=== PATIENT | female | born 1935 ===

== ENCOUNTER 2016-08-12 09:21 | Inpatient (IN) | payer MEDICARE, MEDICAID ==
[2016-08-12] VITALS (14 sets, daily range): BP systolic 75–138; BP diastolic 26–54; PULSE 68–93; RESP 15–23; O2SAT 91–100
[~2016-08-12] VITALS: Ht 160 cm; Wt 121.7 kg
[~2016-08-12 09:21] MED LIST: ALLO300T2 PO; AMLO10TA3 PO; CARV25TA2 PO; CEPH250C PO; CYCL5TAB PO; FENO160T6 PO; FOLI1TAB18 PO; FURO-129 PO; GABA-502 PO; GABA100C PO; GABA300C PO; INSU100C8 SUBCUTA079; INSU100V7 SUBQ; LORA10CA PO; METH5TAB PO; METH5TAB3 PO; METO-301 PO; ONDA4TAB9 PO; OXYC-466 PO; OXYC10TA8 PO; PRAM1TAB3 PO; SIMV20TA4 PO; VENL37.57 PO
[2016-08-12] MEDS ORDERED: 0.9% Sodium Chloride 1,000 ML IV ONE ×5 (09:41→14:15)
[2016-08-12 10:05] LABS: BASOPHILS % (AUTO) 0.1 % (0-3); EOSINOPHILS % (AUTO) 2.6 % (0-5); MONOCYTES % (AUTO) 6.9 % (4-12); Mean Corpuscular Hemoglobin 25.3 pg (27.0-35.0); NEUTROPHILS % (AUTO) 83.9 % (40-74); Platelet Count 170 bil/L (150-400)
--- NOTE | 2016-08-12 10:21 | DRSVH ---
PROCEDURE: CT BRAIN WITHOUT CONTRAST ([id number]) INDICATIONS: weakness, ams TECHNIQUE: Noncontrast 4.5 mm thick angled axial sections acquired from the foramen magnum to the vertex, with c oronal reformats. COMPARISON: [facility], CT, BRAIN W/O CONTRAST, 07/25/2014, 17:05. [facility], CT, BRAIN W/O CONTRAST, 12/31/2013, 13:07. [facility], CT, BRAIN W/O CONTRAST, 12/01/19 14, 0:56. FINDINGS: Image quality: Excellent. CSF spaces: Basal cisterns are patent. No extra-axial fluid collections. The ventricles are symmet hannah in size and shape. Brain: No intracranial bleeds or masses. 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 There is cerebral volume loss for age, with resultant ventricular and sulcal prominence. There a re periventricular and deep white matter chronic small vessel ischemic changes. There is intracrania l internal carotid artery atherosclerosis. Skull and face: Calvarium and visualized facial bones appear intact, without suspicious lesions. Sinuses: There is near no severe right maxillary sinus opacification. Visualized sinuses and mastoid s are otherwise clear. IMPRESSION: 1. No acute intracranial abnormality. 2. Right maxillary sinus disease. Dictated by: Marisa Monzon M.D. on 08/12/2016 at 10:18 Approved by: Marisa Monzon M.D. on 08/12/2016 at 10:19
--- NOTE | 2016-08-12 10:24 | ED.REPORT ---
HPI-General Illness Date of Service Aug 12, 2016 ED Provider: Marcos Quinones MD 81 year old female with a history of CHF, CAD, diabetes, and HTN presents to the ER via EMS due to vomiting and diarrhea onset last night. She reports blood in her vomit and stool. Associated symptoms include mild transient chest pain onset this morning, SOB, generalized weakness, and abdominal pain. Recently she was exposed to an ill friend who drove her to the store yesterday. Per EMS report, patient was hypotensive upon medics' arrival at the patient's residence. Currently she takes Lisinopril, Carvedilol, and 20mg Lasix daily. She has a history of pacemaker placement though she is unclear history as to why she has a pacemaker. Nursing Notes Stated Complaint: GENERALIZED WEAKNESS Chief Complaint: General Complaint Nursing Notes Reviewed: Yes Allergies: Coded Allergies: Salicylates (Verified Allergy, Severe, 04/19/16) metformin (Verified Allergy, Unknown, 04/19/16) NSAIDS (Non-Steroidal Anti-Inflamma (Verified Adverse Reaction, Intermediate, GI upset, 04/19/16) codeine (Verified Adverse Reaction, Mild, GI UPSET, 04/19/16) Scheduled Allopurinol (Allopurinol) 300 Mg Tablet 300 MG PO DAILY Amlodipine (Amlodipine) 10 Mg Tablet 10 MG PO DAILY Carvedilol (Carvedilol) 25 Mg Tablet 25 MG PO BID Cephalexin (Cephalexin) 250 Mg Capsule 250 MG PO TID Fenofibrate (Lofibra) 160 Mg Tablet 160 MG PO DAILY Folic Acid (Folic Acid) 1 Mg Tablet 1 MG PO DAILY Furosemide (Lasix) 20 Mg Tablet 20 MG PO DAILY Gabapentin (Gabapentin) 300 Mg Capsule 600 MG PO QAM Gabapentin (Gabapentin) 300 Mg Capsule 600 MG PO HS Gabapentin (Neurontin) 300 Mg Capsule 600 MG PO BID Gabapentin (Neurontin) 100 Mg Capsule 200 MG PO noon Insulin Aspart (NovoLOG U100 Insulin Vial) 100 U/Ml U 10 UNIT [id number] TIDAC Insulin Glargine (Lantus U100 Insulin Vial) 100 Unit/Ml Vial 40 UNIT SUBQ BID INSULIN PROTOCAL Methadone (Methadone) 5 Mg Tablet 5 MG PO Q 8 HR Methotrexate Sodium (Trexall) 5 Mg Tablet 25 MG PO EVERY THURSDAY Pramipexole Dihydrochloride (Mirapex) 1 Mg Tablet 2 MG PO HS Simvastatin (Simvastatin) 20 Mg Tablet 20 MG PO HS Venlafaxine (Venlafaxine) 37.5 Mg Tablet 37.5 MG PO TID Scheduled PRN Cyclobenzaprine (Cyclobenzaprine) 5 Mg Tablet 5 MG PO HS PRN PRN Spasm Loratadine (Claritin) 10 Mg Capsule 10 MG PO DAILY PRN PRN ALLERGIES Metoclopramide (Reglan) 10 Mg Tablet 10 MG PO HS PRN PRN For Nausea Ondansetron ODT (Zofran ODT) 4 Mg Tablet 4 MG PO Q4H PRN PRN For Nausea oxyCODONE (oxyCODONE) 10 Mg Tablet 10 MG PO QID PRN PRN For Pain oxyCODONE-Acetaminophen 10-325 mg (oxyCODONE-Acetaminophen 10-325 mg) 1 Each Tablet 1 TAB PO Q4H PRN PRN For Pain General Time Seen by MD: 09:40 Chief Complaint Diarrhea, Vomiting Hx Obtained From: Patient, EMS Arrived By: Ambulance Sudden in Onset?: No Onset Occurred: Yesterday Symptom Duration: Since onset Associated with: Reports: Abdominal pain, Chest pain, Nausea, Shortness of breath, Vomiting, Weakness Context Related History: Reports Coronary artery disease, Reports Diabetes mellitus Past Medical History Past Medical History Notes: PCP: Dr. Zay NUNEZ Report: Patient is chronically on opiate pain medications. Two visits to [facility] ED in the last month. Past Medical History 1. Arteriosclerotic coronary artery disease, history of [place] in 1991. Has a normal ejection fraction, no significant valvular heart disease, and a normal EF. 2. Hypertension. 3. Biventricular dual-chamber defibrillator placed August 16, 2012. 4. Prior history of pulmonary embolism many years ago. 5. Sleep apnea and is noncompliant with CPAP. 6. GI bleeding in the past with EGD diagnosis esophagitis, gastritis, gastric polyps, hiatal hernia. 7. Degenerative joint disease, osteoarthritis. 8. Type 2 diabetes, insulin dependent 9. Prior history of small-bowel obstruction. 10. Recurrent urinary tract infections. 11. Status post cholecystectomy, hysterectomy. Reports: Congestive heart failure, Coronary artery disease, Diabetes mellitus, Hyperlipidemia, Hypertension Past Surgical History Reports: Appendectomy, Cholecystectomy, Hysterectomy Reports: Pacemaker insertion Smoking History Never Smoker Social History Alcohol Use: Denies alcohol use Drug Use: Denies drug use Other Social History: Lives with children, Local resident Ambulatory Status Independent Review of Systems Full Review of Systems Constitutional: Reports: Weakness - generalized, Denies: Chills, Fever Respiratory: Reports: Shortness of breath, Denies: Non-productive cough Cardiovascular: Reports: Chest pain GI: Reports: Abdominal pain, Bloody/tarry stool, Diarrhea, Hematemesis, Hematochezia, Nausea, Vomiting, Denies: Constipation Musculoskeletal: Reports: Extremity swelling (Lower, bilateral) Neurologic: Denies: Headache Complete sys rev & neg: except as marked. Physical Exam Vital Signs Vital Signs Date Time Temp Pulse Resp B/P Pulse Ox O2 Delivery O2 Flow Rate FiO2 08/12/16 16:15 68 21 76/26 97 Mechanical Ventilator 08/12/16 15:53 100 08/12/16 15:01 36.2 86 15 98/37 94 Simple Mask 3 08/12/16 14:26 84 23 107/54 95 Simple Mask 4 08/12/16 13:59 78 23 90/38 100 Simple Mask 4 08/12/16 13:39 35.7 08/12/16 13:34 35.8 73 22 80/30 96 Simple Mask 4 08/12/16 12:08 36.4 79 23 84/39 91 Nasal Cannula 2 08/12/16 11:11 85 22 89/42 95 Room Air 08/12/16 10:19 89 21 75/34 96 Room Air 08/12/16 09:40 37.0 89 22 93/34 94 2 Initial VS: Reviewed Head / Eyes: Atraumatic, Normocephalic, PERRL Neck: Supple, Non-tender, Full range of motion Extremities: Vascular intact, Neuro intact, No swelling, No tenderness Skin: Warm, Dry, No cyanosis Neurologic: Alert, Oriented, Nonfocal Psychiatric: Mood/affect normal, Behavior normal, Normal thought content General/Constitutional: Awake, Alert, Well developed Appearance / Presentation: Positive: Obese ENT: Airway patent Mouth: Positive: Mucous membranes dry Respiratory / Chest: Breath sounds NL, No respiratory distress, No rales, No rhonchi, No wheezing Cardiovascular: Heart rate NL, Regular rhythm, Heart sounds NL Thready distal pulses. Trace pitting edema in the bilateral lower extremities. Interpretation & Diagnostics Lab Results Interpretation Result Diagram: 08/12/16 0955 08/12/16 0955 Test 08/12/16 09:55 08/12/16 12:35 08/12/16 15:48 White Blood Count 8.0th/mm3 (3.8-10.1) Red Blood Count 4.00mil/mm3 (3.90-5.20) Hemoglobin 10.1g/dL (12.0-15.6) Hematocrit 33.2% (35.0-46.0) Mean Corpuscular Volume 83.0fL (81-100) Mean Corpuscular Hemoglobin 25.3pg (27.0-35.0) Mean Corpuscular Hemoglobin Concent 30.4% (32.0-37.0) Red Cell Distribution Width 15.6% (12.3-15.4) Platelet Count 170bil/L (150-400) Neutrophils (%) (Auto) 83.9% (40-74) Lymphocytes (%) (Auto) 6.0% (14-46) Monocytes (%) (Auto) 6.9% (4-12) Eosinophils (%) (Auto) 2.6% (0-5) Basophils (%) (Auto) 0.1% (0-3) Sodium Level 136mEq/L (134-144) Potassium Level 4.9mEq/L (3.5-5.2) Chloride Level 99mEq/L (97-108) Carbon Dioxide Level 20mmol/L (18-29) Blood Urea Nitrogen 48mg/dL (8-27) Creatinine 2.45mg/dL (0.57-1.00) Estimat Glomerular Filtration Rate 27mL/min (>59) Glucose Level 212mg/dL (60-99) Calcium Level 8.5mg/dL (8.5-10.1) Total Bilirubin 0.7mg/dL (0.0-1.2) Aspartate Amino Transf (AST/SGOT) 82U/L (0-50) Alanine Aminotransferase (ALT/SGPT) 48U/L (0-32) Alkaline Phosphatase 134U/L (25-165) Troponin T < 0.010ug/L (0.0-0.011) Pro-B-Type Natriuretic Peptide 228.4pg/mL (0-738) Total Protein 6.6g/dL (6.4-8.4) Albumin 3.5g/dL (3.4-5.0) Urine Color Yellow (YELLOW) Urine Appearance Hazy (CLEAR,HAZY) Urine pH 5.0 (5.0-8.0) Urine Specific [place] 1.025 (1.003-1.035) Urine Protein Negativemg/dL (NEG,TRACE) Urine Glucose (UA) Negativemg/dL (NEGATIVE) Urine Ketones Tracemg/dL (NEGATIVE) Urine Occult Blood Negative (NEGATIVE) Urine Nitrite Negative (NEGATIVE) Urine Bilirubin Small (NEGATIVE) Urine Ictotest Negative (Negative) Urine Urobilinogen Normalmg/dL (NORMAL) Urine Leukocyte Esterase Trace (NEGATIVE) Urine RBC 0-2/hpf (0-2) Urine WBC 0-5/hpf (0-5) Urine Epithelial Cells Occasional/hpf (NONE-MOD) Urine Crystals Amorphous urates (NONE Urine Bacteria Few/hpf (NONE-FEW) Urine Hyaline Casts None/lpf (NONE) Urine Granular Casts None seen (NONE SEEN) Urine Waxy Casts None seen (NONE SEEN) Urine Red Blood Cell Casts None seen (NONE SEEN) Urine White Blood Cell Casts None seen (NONE SEEN) Urine Mucus None seen (None Seen) Urine Trichomonas None seen (NONE SEEN) Urine Yeast None (NONE SEEN) Urinalysis Comment None Urine Culture Reflexed Indicated Urine Opiates Screen Negative Urine Methadone Screen Negative Urine Barbiturates Screen Negative Urine Amphetamines Screen Positive Urine Benzodiazepines Screen Negative Urine Cocaine Metabolite Screen Negative Urine Cannabinoids Screen Negative Lactic Acid Level 3.0mmol/L (0.4-2.0) ECG Interpretation ECG Interpretation: ventricular paced rhythm, rate 89 when compared to ECG 04/19/16, no acute changes present. Time: 11:11 Interpreted by: ED physician ABG Interpretation ABG Interpretation: pH/ 7.138 pCO2/ 54 pO2/ 73 cHCO3/ 17.5 cBase/ -10.7 Exam Performed by: Allied health pract Exam Interpreted by: ED physician X-Ray Chest Interpretation Chest Xray Interpretation: IMPRESSION: No acute cardiopulmonary abnormality Dictated by: Daniel Nichole M.D. on 08/12/2016 at 10:44 Approved by: Daniel Nichole M.D. on 08/12/2016 at 10:45 View: Portable, 1 view Interpretation / Wet Read by: Interpret - Radiologist CT Head Interpretation IMPRESSION: 1. No acute intracranial abnormality. 2. Right maxillary sinus disease. Dictated by: Marisa Monzon M.D. on 08/12/2016 at 10:18 Approved by: Marisa Monzon M.D. on 08/12/2016 at 10:19 Study: Head CT no contrast Interpretation / Wet Read by: Interpret - Radiologist Procedures Central Line Placement Time: 13:56 Procedure Performed by: ED physician Consent / Setup / Site Prep: Informed consent provided, Consent from patient , Time-out performed, Needle aspirate performed, Oxygen administered, Pulse oximeter applied, trauma doctor applied, Hand hygiene observed, Standard surgical scrub, Max barrier precaution, Sterile drapes applied, Position supine Skin Preparation Agent: [place] Local Anesthesia: Lidocaine 1% Side / Location / Ultrasound: Internal jugular right, Ultrasound assisted Catheter / Lumen / Technique: Triple lumen, Seldinger technique, Good blood return, Secured w catheter device Central Line Tip Location: Cath tip good position in the SVC Post-Procedure / Complications: CXR neg for pneumothorax, Condition improved , Tolerated procedure well, Patient stable, Not stable post-procedure Intubation Time: 15:32 Procedure Performed by: ED physician Consent / Setup / Site Prep: Informed consent provided, Consent from patient , Time-out performed, Oxygen administered, Pulse oximeter applied, trauma doctor applied, Hand hygiene observed, Stand sterile technique, Removed dentures Patient Position: Neutral position Blade / ET Tube / Route: [place] scope, Route: oral Procedural Sedation/Analgesia: Sedation: Etomidate (33mg) Neuromuscular Agent: Succinylcholine (167mg) ET Confirmation: Direct visualization, BS equal, End tidal CO2 device, CXR, Rising O2 sat Secured / Marked: ET tube device, Tube marked at ___ cm (22), Tube marked at teeth (gums) Complications: None Post-Procedure: Condition improved, Tolerated procedure well, Patient stable Re-Eval/Medical Decision Med Decision/Clinical Course 81 year old female with a history of CHF, CAD, diabetes, and HTN presents to the ER via EMS due to vomiting and diarrhea onset last night. She reports blood in her vomit and stool. Associated symptoms include mild transient chest pain onset this morning, SOB, generalized weakness, and abdominal pain. Recently she was exposed to an ill friend who drove her to the store yesterday. Per EMS report, patient was hypotensive upon medics' arrival at the patient's residence. Currently she takes Lisinopril, Carvedilol, and 20mg Lasix daily. She has a history of pacemaker placement though she is unclear history as to why she has a pacemaker. Initially hypotensive 60's/30's. Repeat BP 75/34 with IV fluid bolus. Vital signs otherwise stable. Laboratory studies notable as below: No leukocytosis Hct 34.2 BUN 48 Creatinine 2.45 Glucose 212 Lactic acid 2.8 Mildly elevated transaminases Neg trop BNP within normal limits UDS positive for amphetamines, otherwise negative UA unconvincing of UTI IV access was obtained and we aggressively administered IV fluids. The patient' s blood pressure improved with a map of 65. The patient did mention possible underlying congestive heart failure and is on Lasix though she appeared profoundly dehydrated. Chest x-ray demonstrated no pulmonary edema and BNP was not elevated. The patient did not develop any pulmonary edema or respiratory deterioration with aggressive IV fluid management. However she remained hypotensive with a map below 65 despite receiving 30 mL/kg of IV fluids. Therefore a right IJ CVC was placed as documented above and we initiated a norepinephrine infusion with a goal MAP of 65. This resulted in good blood pressure management. Given the patient's ongoing profound hypertension and severe illness despite extensive workup without any obvious infectious source other than diarrheal illness I opted to start broad-spectrum antibiotics with IV vancomycin and Zosyn. Patient became increasingly somnolent with respirations that were agonal in appearance. She maintained oxygen saturation in the 90s on room air though ABG demonstrated that she was significantly acidotic with primary metabolic acidosis as well as a respiratory acidosis. Given that the patient was not mounting appropriate respiratory compensation and was becoming increasingly somnolent therefore I opted to proceed with rapid sequence intubation as documented above. The patient did become briefly hypoxic with an oxygen saturation in the 50s spell this rapidly improved to 100%. The procedure was achieved with relative ease. Of note, the patient developed several runs of ventricular tachycardia though maintained pulses. Given that these were fairly brief episodes I did not immediately opt to start the patient on amiodarone. The patient remained critically ill and was discussed with the ICU team. The patient was transferred to the ICU for further management and was stabilized at time of transfer. Source of Hx: Old records Time of Eval: 10:16 Re-Evaluation/Progress Note: Discussed need to admit. Patient is amenable to the plan. Time of Eval: 10:51 Re-Evaluation/Progress Note: Patient is resting peacefully. Abdominal discomfort persists. Time of Eval: 11:07 Re-Evaluation/Progress Note: Rechecked patient's blood pressure, improved to 80's/40's with MAP of 60. Time of Eval: 15:31 Re-Evaluation/Progress Note: Patient is now accompanied by her son who is at bedside. Updated patient and son on the plan of care, and need to intubate. They understand and agree to the plan. Consultation #1: Referral / Consult Name: Gabriel Vasquez MD Consulted With: Hospitalist Call Returned at: 12:00 Manager Transfusion: Agrees with eval, Agrees with plan, Accepts admit Consultation #2: Referral / Consult Name: Gabriel Vasquez MD Consulted With: Hospitalist Call Returned at: 15:15 Counseled Regarding: Diagnosis, Lab results, Need for admission Discharge & Departure Primary Impression: Hypotension Hypotension type: unspecified hypotension type Qualified Code: I95.9 - Hypotension, unspecified Additional Impressions: Abdominal pain Abdominal location: generalized Qualified Code: R10.84 - Generalized abdominal pain Ventricular tachycardia Septic shock Metabolic acidosis Respiratory acidosis Acute respiratory failure Respiratory failure complication: hypercapnia Qualified Code: J96.02 - Acute respiratory failure with hypercapnia Nausea and vomiting Vomiting type: unspecified Vomiting Intractability: unspecified Qualified Code: R11.2 - Nausea with vomiting, unspecified Diarrhea Disposition: ADMITTED TO HOSPITAL Discharge Condition All VS Reviewed: Yes Condition: Stable Referrals: PAUL MARY (PCP) Crit Care Except Billable Proc Time Spent: >225 minutes Services Performed: Patient management by me, Time spent at bedside, Reviewing test results, Reviewing imaging, Discussing patient care, Documentation in record, Time with fam/surrogate Critical Care Notes: Extensive time at the bedside, stabilization, ventilator management, management of vasoactive drips, discussion with consultants, serial rechecks, exclusive of separately billable procedures. Beena Attestation Portions of this note were transcribed by Esteban Hall. I, Dr. Quinones, personally performed the history, physical exam and medical decision-making; I reviewed and confirmed the accuracy of the information in the transcribed note. Signed by: Beena Maharaj, 08/12/2016 and 15:45 copies to: PAUL MARY Beck O MD Jan 31, 2017 10:23 ESTEBAN HALL Aug 12, 2016 10:39
[2016-08-12 10:30] LABS: TROPONIN T < 0.010 ug/L (0.0-0.011)
[2016-08-12] MEDS ORDERED: HYDROmorphone 1 mg/mL Inj IVPUSH ONE (10:30)
[2016-08-12] MEDS ORDERED: Ondansetron 2 mg/mL 2 mL Inj IVPUSH PRN (10:30)
[2016-08-12] MEDS ORDERED: Alum-Mag Hydrox-Simeth 30 mL Suspension PO PRN (10:30)
--- NOTE | 2016-08-12 10:47 | DRSVH ---
PROCEDURE: X-RAY CHEST ONE VIEW, PORTABLE ([id number]) INDICATIONS: weakness TECHNIQUE: One view of the chest was acquired. COMPARISON: 04/12/2016 FINDINGS: Surgical changes and devices: AICD Lungs and pleura: Elevated right hemidiaphragm. No pleural effusions or pneumothorax. Lungs are amy ar. Mediastinum: Mediastinal contours appear normal. Heart size is normal. Bones and chest wall: No suspicious bony lesions. Overlying soft tissues appear unremarkable. IMPRESSION: No acute cardiopulmonary abnormality Dictated by: Daniel Nichole M.D. on 08/12/2016 at 10:44 Approved by: Daniel Nichole M.D. on 08/12/2016 at 10:45
[2016-08-12] MEDS ORDERED: HYDROcodone-APAP 5-325 mg Tablet PO PRN (12:20)
[2016-08-12] MEDS ORDERED: Polyethylene Glycol (PEG) 17 Gm Powder PO PRN (12:20)
[2016-08-12] MEDS ORDERED: oxyCODONE-Acetamin 10-325 mg Tablet PO PRN (12:25)
[2016-08-12] MEDS ORDERED: Non-Formulary Medication (oxyCODONE 10 MG) PO PRN (12:25)
--- NOTE | 2016-08-12 12:33 | PCM.HPMED ---
Subjective Date of Service Aug 12, 2016 Primary Provider: Admitting Physician: Primary Care Physician: Sheila Rabago Attending Physician: Chief Complaint: Nausea, vomiting blood in stool and vomit and mild transient chest pain History of Present Illness: 81 year old female with a history of CHF, CAD, diabetes, and HTN presents to the ER via EMS due to vomiting and diarrhea onset last night. She reports blood in her vomit and stool. Associated symptoms include mild transient chest pain onset this morning, SOB, generalized weakness, and abdominal pain. Recently she was exposed to an ill friend who drove her to the store yesterday. Per EMS report, patient was hypotensive upon medics' arrival at the patient's residence. Review of Systems: Gen.: No fevers chills weight loss weight gain Eyes: no visual disturbances or blurring vision HEENT: No nose/throat drainage, no pain in ears or throat, no hearing loss Lymph: No lymph nodes noted Cardiac: No chest pain, orthopnea, PND, palpitations , pedal edema or dyspnea on exertion Pulmonary: no cough, wheezing or bringing up of sputum GI: No anorexia nausea vomiting blood or black in the stool : no dysuria hematuria urinary frequency or decrease in urine output Musculoskeletal: Joint swelling no joint pain no new muscle aches or back pain Neuro: No syncope, seizures no loss of consciousness no new focal weakness, numbness or tingling Psychiatric: New new anxiety insomnia or depression Endocrine: No new heat or cold intolerances polyuria or polydipsia Hematology: No lymphadenopathy or easy bleeding or bruising noted skin: No new rashes, stasis dermatitis Allergies Coded Allergies: Salicylates (Verified Allergy, Severe, 04/19/16) metformin (Verified Allergy, Unknown, 04/19/16) NSAIDS (Non-Steroidal Anti-Inflamma (Verified Adverse Reaction, Intermediate, GI upset, 04/19/16) codeine (Verified Adverse Reaction, Mild, GI UPSET, 04/19/16) Home Medications Allopurinol (Allopurinol) 300 Mg Tablet 300 MG PO DAILY Amlodipine (Amlodipine) 10 Mg Tablet 10 MG PO DAILY Carvedilol (Carvedilol) 25 Mg Tablet 25 MG PO BID Cephalexin (Cephalexin) 250 Mg Capsule 250 MG PO TID Fenofibrate (Lofibra) 160 Mg Tablet 160 MG PO DAILY Folic Acid (Folic Acid) 1 Mg Tablet 1 MG PO DAILY Furosemide (Lasix) 20 Mg Tablet 20 MG PO DAILY Gabapentin (Gabapentin) 300 Mg Capsule 600 MG PO QAM Gabapentin (Gabapentin) 300 Mg Capsule 600 MG PO HS Gabapentin (Neurontin) 300 Mg Capsule 600 MG PO BID Gabapentin (Neurontin) 100 Mg Capsule 200 MG PO noon Insulin Aspart (NovoLOG U100 Insulin Vial) 100 U/Ml U 10 UNIT [id number] TIDAC Insulin Glargine (Lantus U100 Insulin Vial) 100 Unit/Ml Vial 40 UNIT SUBQ BID INSULIN PROTOCAL Methadone (Methadone) 5 Mg Tablet 5 MG PO Q 8 HR Methotrexate Sodium (Trexall) 5 Mg Tablet 25 MG PO EVERY THURSDAY Pramipexole Dihydrochloride (Mirapex) 1 Mg Tablet 2 MG PO HS Simvastatin (Simvastatin) 20 Mg Tablet 20 MG PO HS Venlafaxine (Venlafaxine) 37.5 Mg Tablet 37.5 MG PO TID Scheduled PRN Cyclobenzaprine (Cyclobenzaprine) 5 Mg Tablet 5 MG PO HS PRN PRN Spasm Loratadine (Claritin) 10 Mg Capsule 10 MG PO DAILY PRN PRN ALLERGIES Metoclopramide (Reglan) 10 Mg Tablet 10 MG PO HS PRN PRN For Nausea Ondansetron ODT (Zofran ODT) 4 Mg Tablet 4 MG PO Q4H PRN PRN For Nausea oxyCODONE (oxyCODONE) 10 Mg Tablet 10 MG PO QID PRN PRN For Pain oxyCODONE-Acetaminophen 10-325 mg (oxyCODONE-Acetaminophen 10-325 mg) 1 Each Tablet 1 TAB PO Q4H PRN PRN For Pain PMH 1. Arteriosclerotic coronary artery disease, history of VT in 1991. Has a normal ejection fraction, no significant valvular heart disease, and a normal EF. 2. Hypertension. 3. Biventricular dual-chamber defibrillator placed August 16, 2012. 4. Prior history of pulmonary embolism many years ago. 5. Sleep apnea and is noncompliant with CPAP. 6. GI bleeding in the past with EGD diagnosis esophagitis, gastritis, gastric polyps, hiatal hernia. 7. Degenerative joint disease, osteoarthritis. 8. Type 2 diabetes, insulin dependent 9. Prior history of small-bowel obstruction. 10. Recurrent urinary tract infections. 11. Status post cholecystectomy, hysterectomy. Reports: Congestive heart failure, Coronary artery disease, Diabetes mellitus, Hyperlipidemia, Hypertension Surgical History Past Surgical History Reports: Appendectomy, Cholecystectomy, Hysterectomy Reports: Pacemaker insertion Family History Brother had an VT in his 30s Social History Occupation: retired Hx Alcohol Use: No Hx Substance Use: No Hx Tobacco Use: No Smoking Status: Never Smoker Living Arrangement: with Family Additional Information Patient local resident, lives with children Social History Hx Alcohol Use: No Hx Substance Use: No Hx Tobacco Use: No Smoking Status: Never Smoker Exam Vital Signs Vital Sign - Last Date Time Temp Pulse Resp B/P Pulse Ox O2 Delivery O2 Flow Rate FiO2 08/12/16 12:08 36.4 79 23 84/39 91 Nasal Cannula 2 Exam Gen.-Morbidly obese female intubated/sedated Eyes-closed, normal lids no drainage Mouth-ET tube ENT- ears normal, nose normal Neck- trach midline unable to assess JVD secondary to body habitus CVS- RRR no murmur or gallop, edema consistent with body habitus and the extremities Lungs- CTA ventilator sounds no wheezes or rhonchi GI-decreased bowel sounds/NT soft no guarding Musc-flaccid no obvious deformity Neuro- cranial nerves II through XII intact to gross examination, nonfocal Skin- warm and dry, no rashes/lesions/wounds noted Psych-sedated Lab and Diagnostics Labs AST 82, ALT 48, alkaline phosphatase 134, proBNP 228, troponin 0.010 urine clear 08/12 DateTimeAnalyzed 17:54:00 -_ pH ____7.224 - 7.350 7.450 pCO2 ___40.4__ -mmHg 35.0 45.0 pO2 ___68.1__ -mmHg 69.0 116 HCO3- ___16.1__ -mmol/L 22.0 26.0 ABE __-10.4__ -mmol/L -2.0 2.0 tHb ____8.5__ -g/dL O2Hb ___88.7__ -% COHb ____1.4__ -% MetHb ____1.6__ -% sO2 ___91.4__ -% FIO2 ___50.0__ -% PEEP ____5.0__ -cmH2O Set_RR ___20.0__ -b/min Vt __400.0__ -L Drawn By MT - Result Diagram: 08/12/16 0955 08/12/16 0955 X-Rays, CTs and MRIs CT head personally/concurrently reviewed by Christina 08/12 1. No acute intracranial abnormality. 2. Right maxillary sinus disease. CXR no acute cardiopulmonary disease, pacemaker noted personally/concurrently reviewed by Christina 08/12 12-lead ECG 08/12 personally/concurrently reviewed by Christina 08/12 . Ventricular-paced rhythm rate 89 . When compared with ECG of 19-Apr-2016 18:13:42, . No significant change Cardiac Echo Impressions Echo 07/26/14 The left ventricle is borderline dilated. Left ventricular systolic function is normal. The ejection fraction is estimated to be 60-65%. There are no obvious focal wall motion abnormalities noted but poor endocardial definition reduces the sensitivity for the detection of such. The right ventricle is normal in size and function. There is a pacemaker lead in the right ventricle. The right ventricular systolic pressure is estimated at 30 mmHg assuming a right atrial pressure of 3 mm Hg. RVSP has decreased since prior study. The left atrium is moderately dilated. Right atrial size is normal. There is no significant valvular heart disease. The aortic root is normal size. No other significant changes since 09/08/2013. Assessment & Plan 81-year-old female acutely ill and admitted 08/12 hypotensive and in acute renal failure complaining of emesis and abdominal pain and then deteriorating in the emergency room becoming hypotensive and did not respond to 4 L of fluid and respiratory failure and was intubated. She comes to the floor on vasopressin and norepinephrine getting IV fluids and on a ventilator. Sepsis?- Source unclear at this point in time but most likely abdominal. Covering abdominal infection with Zosyn, lung zosyn/doxy (less likely). CT chest/abdomen/pelvis ordered cannot do contrast because of acute kidney injury. Trend lactate Acute respiratory failure- patient intubated etiology not entirely clear awaiting imaging thought at this point in time his volume overload/diastolic CHF as patient got 4 L and has sleep apnea and obesity hypoventilation syndrome Abdominal pain/nausea/vomiting/hematemesis/hematochezia-episode concerning for catastrophic abdominal event patient does have this history of bowel obstruction, we are having a problem getting the CT on her because she is not stable so I am getting flat plates. We will also trend H&H every 6 hours and transfuse as needed. Metabolic acidosis- repeat lactate pending, trend, antibiotics and fluid resuscitation Diastolic CHF?- Checking BNP at this point in time after volume resuscitation the contributing factor to respiratory failure Hypotension- likely secondary to sepsis, checking random cortisol level, volume resuscitating and utilizing pressors at this time. SHEBA-baseline cr 0.8 810/9/16, 2.45 1/31, follow and volume resuscitated at this time. IDDM- Lantus as ordered on parameters, prandial insulin, sliding scale insulin will follow an HG A1c is pending Transaminitis-acute, new since April, AST/ALT 82/48 08/12 HX HTN/LIPID/cad- home meds on parameters track Trop/EKG patient at risk for cardiac event under stress Hx GERD/GIBleed- follow H&H and transfuse as needed ROBBIE- non compliant likely contributed to respiratory failure Prophylaxis- DVT patient should have SCDs and heparin, GI pantoprazole Disposition-from home full code Not entirely clear what happening with this patient she initially presented as a viral gastroenteritis it would appear and then deteriorated in the emergency room. She has a history of bowel obstructions and risk factors for vascular events greater than 90 minutes spent ICU level care for life-threatening event that may sedate this patient's demise. Gabriel Vasquez MD Aug 12, 2016 12:33
[2016-08-12 13:04] LABS: APPEARANCE,URINE HAZY (CLEAR,HAZY); COLOR,URINE YELLOW (YELLOW); OCCULT BLOOD,URINE NEGATIVE (NEGATIVE); UROBILINOGEN,URINE NORMAL (NORMAL)
[2016-08-12 13:29] LABS: ICTOTEST,URINE NEGATIVE (Negative)
[2016-08-12] MEDS ORDERED: Glucose 40% Oral Gel 15 Gm Tube PO PRN (13:45)
[2016-08-12] MEDS ORDERED: 0.9% Sodium Chloride 1,000 ML IV SCH (13:55)
[2016-08-12] MEDS: Norepineph 8,000 mCg/250 mL NS 8,000 MCG in IV Premix 1 EACH IV SCH ×2 (14:00→18:50)
--- NOTE | 2016-08-12 14:38 | DRSVH ---
PROCEDURE: X-RAY CHEST ONE VIEW, PORTABLE ([id number]) INDICATIONS: Central line placement TECHNIQUE: One view of the chest was acquired. COMPARISON: None. FINDINGS: Surgical changes and devices: Permanent pacemaker/defibrillator. Right-sided IJ central venous cathet er has been placed, tip appearing to enter the SVC. Lungs and pleura: No pleural effusions or pneumothorax. There is a developing infiltrate in the righ t upper lobe and there is also obscuration of the cardiac apex secondary to pleural-parenchymal densi ty in the left lower lobe or lingula. Some crowding of vessels is present at the left base medially c ompatible with aspiration/pneumonia. Mediastinum: Mediastinal contours appear normal. Heart size is normal. Bones and chest wall: No suspicious bony lesions. Overlying soft tissues appear unremarkable. IMPRESSION: 1. Interval placement of a central venous line with no apparent complication. 2. Right upper lobe and left lower lobe infiltrates compatible with pneumonia or asymmetrical pulmona ry edema. Dictated by: Daniel Nichole M.D. on 08/12/2016 at 14:34 Approved by: Daniel Nichole M.D. on 08/12/2016 at 14:36
[2016-08-12] MEDS: 0.9% Sodium Chloride 1,000 ML IV SCH (14:47)
--- NOTE | 2016-08-12 14:47 | ABG ---
DateTimeAnalyzed 14:43:00 -_ pH ____7.138 - 7.350 7.450 pCO2 ___53.7__ -mmHg 35.0 45.0 pO2 ___73.0__ -mmHg 69.0 116 HCO3- ___17.5__ -mmol/L 22.0 26.0 ABE __-10.7__ -mmol/L -2.0 2.0 tHb ____8.3__ -g/dL O2Hb ___88.5__ -% COHb ____1.2__ -% MetHb ____1.5__ -% sO2 ___91.0__ -% FIO2 ___40.0__ -% Drawn By JJ - Date/Time Notified____ 14:47:00 -_ Spontaneous_RR ___24.0__ -b/min Liter_Flow ____3.0__ -L/min Oxygen Device 1 __OXYMASK - Notified By jj - Notified Whom DR [address] - Age 74 -years B 764 -mmHg tO2 ___10.5__ -Vol% Abdelrahman test _Positive -
[2016-08-12] MEDS ORDERED: Piperacillin-Tazo 3.375 Gm Inj 3.375 GM in Dextrose 5% Minibag Plus 50 ML IV ONE (15:10)
[2016-08-12] MEDS ORDERED: Succinylcholine Chloride 20 mg/mL 5 mL Inj IVPUSH ONE (15:10)
[2016-08-12] MEDS ORDERED: Vancomycin Dose per Pharmacist XX ONE (15:10)
[2016-08-12] MEDS ORDERED: fentaNYL 2,500 mCg/250 mL 2,500 MCG in IV Premix 1 EACH IV SCH (15:30)
[2016-08-12] MEDS: Vasopressin Inj 20 UNIT in 0.9% Sodium Chloride 100 ML IV SCH (16:36)
[2016-08-12] MEDS ORDERED: EPINEPHrine 0.1 mg/mL 10 mL Syringe ONE (16:44)
[2016-08-12] MEDS ORDERED: Sodium Bicarb 1 mEq/mL 50 mL Inj ONE (16:44)
[2016-08-12] MEDS ORDERED: Sodium Chloride LOK Flush 10 mL Syringe ONE (16:44)
[2016-08-12] MEDS ORDERED: Vasopressin 20 Units/100 mL NS IV PRN ×2 (16:45)
--- NOTE | 2016-08-12 17:02 | DRSVH ---
PROCEDURE: X-RAY CHEST ONE VIEW, PORTABLE ([id number]) INDICATIONS: Post intubation TECHNIQUE: One view of the chest was acquired. COMPARISON: [facility], CR, XR CHEST 1VW (PORTABLE), 08/12/2016, 14:01. [facility], CR, XR CHEST 1VW (PORTABLE), 08/12/2016, 9:51. [facility], CR, XR CHEST 1VW (PORT ABLE), 04/19/2016, 18:44. FINDINGS: Surgical changes and devices: Left-sided pacer. ETT is present, tip of which is 26 mm above the akil a. Right internal jugular vein central venous catheter is present, tip of which projects over the low er SVC. Lungs and pleura: No pleural effusions or pneumothorax. Lung volumes are low. Bilateral perihilar at electasis versus pneumonia. Moderate patchy left basilar opacity. Mediastinum: Mediastinal contours appear normal. Heart size is normal. Bones and chest wall: No suspicious bony lesions. Overlying soft tissues appear unremarkable. IMPRESSION: 1. Tubes and catheters as described above. 2. Left basilar pneumonia. Continued plain film surveillance is recommended to ensure resolution, and to exclude underlying or central malignancy. Dictated by: Marisa Monzon M.D. on 08/12/2016 at 16:59 Approved by: Marisa Monzon M.D. on 08/12/2016 at 17:00
[2016-08-12] MEDS ORDERED: fentaNYL 2,500 mCg/250 mL 2,500 MCG in IV Premix 1 EACH IV PRN (17:19)
[2016-08-12] MEDS ORDERED: fentaNYL-PF 50 mCg/mL 2 mL Inj IVPUSH PRN (17:20)
[2016-08-12] MEDS ORDERED: SODIUM CHLORIDE 0.9% IV ONE (17:30)
[2016-08-12] MEDS ORDERED: PERAMIVIR IV ONE (17:30)
--- NOTE | 2016-08-12 17:59 | PCM.CHPMED ---
Subjective Date of Service: Aug 12, 2016 Provider requesting consult: Gabriel Vasquez MD Primary Physician: Admitting Physician: Gabriel Vasquez MD Primary Care Physician: Sheila Rabago Attending Physician: Gabriel Vasquez MD Chief Complaint: Chief Complaint: Reason for pulmonology/critical care consult: Mechanical ventilator management and septic shock secondary to suspected pneumonia vs undetermined etiology at time of admission History of Present Illness: Ms. Maldonado is a 81 year old woman with reported history of CAD s/p ND with dual chamber defibrillator placement, DM, PE, and HTN that presented to [facility] with a one day history of vomiting and diarrhea associated with evidence of blood, transient chest pain, SOB, generalized weakness, and abdominal pain. She was admitted for evaluation and treatment of septic shock secondary to suspected PNA , SHEBA, and/or possible intra-abdominal process. Pulmonary/critical care was consulted for mechanical ventilation and supportive management of pressors, antibiotics, and work up. Patient was intubated and sedated at time of examination. No ROS could be obtained. Last device check for defibrillator was 07/25/2016, no abnormalities noted. Echo history 07/2014 with LV dilation, EF60-65, no wall motion abnormalities, and RV normal in size and function. On admission, Cr 2.45, LA 2.8. Baseline creatinine based on previous admissions approx 1-1.42. Of note, UTox at admission revealed positive screen for amphetamines. Unknown at time of admission if OTC cough remedies were taken. In the ED, afebrile with T36.2 P86, BP98/37; she received 5L, Zosyn x1, norepinephrine was initiated. Reported to have multiple runs of VTach. She was promptly intubated secondary to acute hypoxemic respiratory failure observed in the ED. Her blood pressures soon began to drop despite fluid resuscitation and norepi, and vasopressin was added. Doxycycline, peramivir added to regiment. Left arterial line placed prior to transfer to CCU. Patient was transferred to CCU in stable condition, managed with pressor agents and mechanical ventilation. Review of Systems: ROS cannot be obtained secondary to sedation and intubation PMH Past Medical History Per chart review, as patient is intubated and sedated at time of consultation: 1. Arteriosclerotic coronary artery disease, history of ND in 1991. Has a normal ejection fraction, no significant valvular heart disease, and a normal EF. 2. Hypertension. 3. Biventricular dual-chamber defibrillator placed August 16, 2012. 4. Prior history of pulmonary embolism many years ago. 5. Sleep apnea and is noncompliant with CPAP. 6. GI bleeding in the past with EGD diagnosis esophagitis, gastritis, gastric polyps, hiatal hernia. 7. Degenerative joint disease, osteoarthritis. 8. Type 2 diabetes, insulin dependent 9. Prior history of small-bowel obstruction. 10. Recurrent urinary tract infections. 11. Status post cholecystectomy, hysterectomy. Reports: Congestive heart failure, Coronary artery disease, Diabetes mellitus, Hyperlipidemia, Hypertension Bedside Blood Glucose: 173 Surgical History Per chart review, as patient is intubated and sedated at time of consultation: Reports: Appendectomy, Cholecystectomy, Hysterectomy Reports: Pacemaker insertion Home Medications Per documentation from patient's pharmacy: Carvedilol 12.5mg BID Lisinopril 10mg daily Vitamin D 2000IU daily Gabapentin 600mg qam, @1200 Gabapentin 1200mg qhs Loratadine daily Venlafaxine 37.5mg TID Pramipexole 0.5mg qhs Furosemide 10mg qam Tramadol 50mg BID ASA 81 daily Ranitidine 150mg daily Meloxicam 7.5mg qhs Await medication reconciliation to be completed Some medications, such as methadone, insulin, are found to be in discrepancy Allergies: Coded Allergies: Salicylates (Verified Allergy, Severe, 04/19/16) metformin (Verified Allergy, Unknown, 04/19/16) NSAIDS (Non-Steroidal Anti-Inflamma (Verified Adverse Reaction, Intermediate, GI upset, 04/19/16) codeine (Verified Adverse Reaction, Mild, GI UPSET, 04/19/16) Family History Family History Per chart review, as patient is intubated and sedated at time of consultation: Brother had an ND in his 30s Social History Hx Alcohol Use: NoHx Substance Use: NoHx Tobacco Use: No Smoking Status: Never Smoker Exam Vital Signs Vital Sign - Last Date Time Temp Pulse Resp B/P Pulse Ox O2 Delivery O2 Flow Rate FiO2 08/12/16 16:15 68 21 76/26 97 Mechanical Ventilator 08/12/16 15:01 36.2 3 General: No Acute Distress, Other (Intubated and sedated; obese) Eyes: Scleral Anicteric Mouth: Mucous Membranes Dry, Other (ETT in place) Chest & Lungs: Auscultation (Adequate flow all larios; no coarse sounds) Cardiovascular: Regular Rate/Rhythm Pulses: Radial (equal and bilateral) Abdomen: Non-tender Genitourinary: Glaser Present Extremities: No cyanosis/clubbing/edma bilat Neurological: Other (sedated at time of examination) Additional Information: Lines: Left arterial, right IJ, right peripheral Lab and Diagnostics Result Diagram: 08/12/1695408/12/16954 Assessment & Plan Assessment PULMONARY/CRITICAL CARE CONSULT NOTE - Hospital day 1 - Ventilator day 1 Ms. Maldonado is a 81 year old woman with reported history of CAD s/p ND with dual chamber defibrillator placement, DM, PE, and HTN that presented to [facility] with a one day history of vomiting and diarrhea associated with reported evidence of blood, transient chest pain, SOB, generalized weakness, and abdominal pain. She was admitted for evaluation and treatment of suspected septic shock secondary to suspected PNA, SHEBA. Pulmonary/critical care was consulted for mechanical ventilation and supportive management of pressors, antibiotics, and work up. Last device check for defibrillator was 07/25/2016, no abnormalities noted. Echo history 07/2014 with LV dilation, EF60-65, no wall motion abnormalities, and RV normal in size and function. On admission, Cr 2.45, LA 2.8. Baseline creatinine based on previous admissions approx 1-1.42. Of note, UTox at admission revealed positive screen for amphetamines. Unknown at time of admission if OTC cough remedies were taken. In the ED, she received 5L, Zosyn x1, norepinephrine was initiated. Reported to have multiple runs of VTach. She was promptly intubated secondary to acute hypoxemic respiratory failure observed in the ED. Her blood pressures soon began to drop despite fluid resuscitation and norepi, and vasopressin was added. Doxycycline, peramivir added to regiment. Left arterial line placed prior to transfer to CCU. Assessments - Acute hypoxemic respiratory failure requiring mechanical intubation; ongoing - Septic shock secondary to suspected PNA vs currently unknown etiology, with concerns of an occult intra-abdominal process; under investigation - Acute kidney injury secondary to shock; ongoing - Elevated lactic acid - Metabolic acidosis - Positive Utox amphetamine of unknown origin at time of admission - Morbid obesity Plan - Vasopressin added - Adjust norepi, vasopressin as tolerated - Fentanyl, precedex for sedation - Peramivir per pharmacy as influenza prophylaxis - Resp PCR - Sputum Cx - Blood Cx, UCx obtained and pending - Strep pneu Ur - Legionella Ur - Abx: Doxycycline, Zosyn - ABG stat, mixed venous could not be obtained secondary to medications infusing through RIJ; consideration of addition of dobutamine if sats low - Trend troponin secondary to reports of chest pain - Lactic acid trend - Consider repeat echo in am - AM labs/CXR/ABG - Complete CT KUB when stable for transfer to radiology DVT: Hep q8 GI: H2B Diet: None at this time; OGT in place Thank you for this consult, we will happily follow along with you. Please do not hesitate to contact us with any questions or concerns. Total time: 90 minutes Problems: Pain Evaluation: Adequate Pain Control GI Prophylaxis: H2 talya VTE Prophylaxis: Sub-Q Heparin (Unfractionated) Resuscitation Status: CPR: Attempt Resuscitation Attending Statement I have seen and examined this patient with the resident physician. Vital signs , labs, imaging have been reviewed. I agree with the assessment and plan above. Please refer to my separately dictated progress note for any modifications to above. Ignacia Dunn M.D. Pulmonary and Critical Care medicine Pager [phone] Maame Madrid DO Aug 12, 2016 17:46 Ignacia Dunn MD Aug 14, 2016 11:15
--- NOTE | 2016-08-12 18:02 | ABG ---
DateTimeAnalyzed 17:54:00 -_ pH ____7.224 - 7.350 7.450 pCO2 ___40.4__ -mmHg 35.0 45.0 pO2 ___68.1__ -mmHg 69.0 116 HCO3- ___16.1__ -mmol/L 22.0 26.0 ABE __-10.4__ -mmol/L -2.0 2.0 tHb ____8.5__ -g/dL O2Hb ___88.7__ -% COHb ____1.4__ -% MetHb ____1.6__ -% sO2 ___91.4__ -% FIO2 ___50.0__ -% PEEP ____5.0__ -cmH2O Set_RR ___20.0__ -b/min Vt __400.0__ -L Drawn By MT - Date/Time Notified____ 18:02:00 -_ Spontaneous_RR ___20.0__ -b/min Liter_Flow ____3.0__ -L/min Oxygen Device 1 VENTILATOR - Notified By MT - Notified Whom ___Dr. Madrid - Age 74 -years B 764 -mmHg tO2 ___10.6__ -Vol% Abdelrahman test N/A -
--- NOTE | 2016-08-12 18:08 | NUR ---
Admit Note: Patient arrived from ED via stretcher. Vent was stet up by RT, current settings 50%/5PEEP/20RR/400TV. Central line drips: Norepi 0.2mcg/kg/min, NS 100ml/hr, Fentanyl 50mcg/hr. Vasopressin was started at in the unit at 0.03units/min. BG 172. Art line in place current BP125/40. Tele: VPaced 80. Dr Vasquez at bedside assessing patient.
[2016-08-12] MEDS: Doxycycline Inj 100 MG in Dextrose 5% Minibag Plus 100 ML IV SCH ×3 (18:35→20:35)
[2016-08-12 18:40] LABS: BASOPHILS % (AUTO) 0 % (0-3); Mean Corpuscular Volume 84.1 fL (81-100)
[2016-08-12 18:43] LABS: EOSINOPHILS % (AUTO) 2.1 % (0-5); MONOCYTES % (AUTO) 1.9 % (4-12); Mean Corpuscular Hemoglobin 25.1 pg (27.0-35.0); NEUTROPHILS % (AUTO) 86.4 % (40-74); Platelet Count 133 bil/L (150-400)
[2016-08-12] MEDS ORDERED: Piperacillin-Tazo 3.375 Gm Inj 3.375 GM in Dextrose 5% Minibag Plus 50 ML IV SCH (18:45)
[2016-08-12] MEDS: Dexmedetomidine 400 mCg/100 mL 400 MCG in IV Premix 1 EACH IV SCH (19:05)
[2016-08-12 19:09] LABS: Magnesium 1.4 mg/dL (1.6-2.6)
[2016-08-12 19:26] LABS: TROPONIN T < 0.010 ug/L (0.0-0.011)
[2016-08-12] MEDS ORDERED: Calcium GLUCO 10% (Gm) 1 Gm/10 mL 50 mL Inj IV ONE (19:35)
[2016-08-12] MEDS ORDERED: Calcium GLUCO 10% (Gm) Inj 2 GM in 0.9% Sodium Chloride 50 ML IV ONE (19:55)
--- NOTE | 2016-08-12 20:07 | PROCED ---
[address] [address] PROCEDURE NOTE PATIENT: JENNY JONES : 1935 MR#: [id number] ADMIT: 08/12/2016 JOB ID: [id number] DATE OF SERVICE: 08/12/2016 POSTOPERATIVE DIAGNOSIS(ES): Arterial catheter placement. PREOPERATIVE DIAGNOSIS(ES): SURGEON: Ignacia Dunn MD and Maame Madrid DO (RES) PROCEDURE PERFORMED: Right radial arterial line placement. INDICATION FOR PROCEDURE: Hypotension, septic shock, respiratory failure. DESCRIPTION OF PROCEDURE: The patients right wrist was initially prepped and draped. Dr. Batres made [address] a radial artery catheter. The artery was located easily, with good flash of blood, but there was difficulty crossing the guidewire and catheter despite multiple attempts and adjustments. Eventually we moved to the left side and once again prepped and draped for a left radial art line. Ultrasound guidance was used. Our 20-gauge radial artery catheter was passed and after a flash of blood was obtained the guidewire was passed and the catheter placed with some difficulty. The patient tolerated the procedure well. There were no complications and minimal bleeding. No medications were administered.
[2016-08-12] MEDS: Insulin LISPRO 300 Unit/3 mL Inj SUBQ SCH ×2 (20:22→22:31)
[2016-08-12] MEDS ORDERED: Sodium Bicarb 8.4% Inj 150 MEQ in Dextrose 5% 1,000 ML IV ONE (20:25)
[2016-08-12] MEDS ORDERED: Mag Sulf 2 Gm/50mL IV Premix(Mag < 1.6 & Creat > 2) IV ONE (20:25)
[2016-08-12] MEDS ORDERED: Famotidine Inj 10 MG in Dextrose 5% 50 ML IV SCH (20:30)
[2016-08-12] MEDS: Chlorhexidine 0.12% 15 mL Oral Solution MT SCH (20:30)
[2016-08-12] MEDS ORDERED: Insulin GLARgine 100 Unit/mL Syringe SUBQ SCH (20:30)
--- NOTE | 2016-08-12 21:20 | ABG ---
DateTimeAnalyzed 21:14:00 -_ pH ____7.222 - 7.350 7.450 pCO2 ___36.8__ -mmHg 35.0 45.0 pO2 ___63.4__ -mmHg 69.0 116 HCO3- ___14.6__ -mmol/L 22.0 26.0 ABE __-11.8__ -mmol/L -2.0 2.0 tHb ____8.8__ -g/dL O2Hb ___87.5__ -% COHb ____0.2__ -% MetHb ____1.0__ -% sO2 ___88.6__ -% FIO2 ___50.0__ -% PRVC 20 - PEEP ____5.0__ -cmH2O Vt __450.0__ -L Drawn By MM - Date/Time Notified____ 21:19:00 -_ Spontaneous_RR ___20.0__ -b/min Oxygen Device 1 VENTILATOR - Notified By MM - Notified Whom DR PARIMI - Age 74 -years B 765 -mmHg tO2 ___10.9__ -Vol% Abdelrahman test N/A -
[2016-08-13] VITALS: BP 127/38; PULSE 115; RESP 20; O2SAT 93
[2016-08-13 00:19] VITALS: BP 137/43; O2SAT 94
[2016-08-13] MEDS: Chlorhexidine 0.12% 15 mL Oral Solution MT SCH (00:27)
[2016-08-13] MEDS ORDERED: Heparin 5,000 Unit/mL Inj SUBQ SCH (00:30)
[2016-08-13] MEDS ORDERED: 0.9% Sodium Chloride 500 ML ONE (01:27)
[2016-08-13] MEDS: Phenylephrine 20 mg/250 mL D5W IV SCH ×4 (01:30→02:30)
[2016-08-13] MEDS ORDERED: Amiodarone 150 mg/100 mL D5W Premix IV ONE (01:30)
[2016-08-13] MEDS ORDERED: Amiodarone 150 mg/100 mL D5W 150 MG in IV Premix 1 EACH IV ONE (01:35)
[2016-08-13] MEDS ORDERED: Amiodarone 360 mg/200 mL D5W 360 MG, Filter, Taxol 14256-28 1 EACH in IV Premix 1 EACH IV SCH (01:35)
[2016-08-13] MEDS ORDERED: Sodium Bicarb 8.4% Inj 150 MEQ in Dextrose 5% 1,000 ML IV SCH (01:40)
[2016-08-13 01:46] VITALS: BP 86/34; PULSE 88; RESP 20; O2SAT 99
[2016-08-13] MEDS: EPINEPHrine 10,000 mCg/250 mL NS IV SCH ×4 (01:50→02:43)
[2016-08-13] MEDS ORDERED: Magnesium Sulf 2 Gm/50mL Water 2 GM in IV Premix 1 EACH IV ONE (01:55)
--- NOTE | 2016-08-13 02:00 | PCM.PNMED ---
Subjective Date of Service Aug 13, 2016 Subjective Cross cover note: Paged by nurse that the patient was still hypotensive despite on maximum dose of Levophed and Vasopressor. Advised to start Norsynephrine drip. Also increasing the rate of the bicarb drip that was currently running. Patient then developed several episodes of non sustained V tach, Amiodarone drip was started. Labs ordered including BMP and Magnesium levels. Asked nurse to call in family to discuss the changes and also patient has FULL CODE status Rodger Decker MD Aug 13, 2016 02:00
[2016-08-13 02:18] LABS: Magnesium 1.9 mg/dL (1.6-2.6)
[2016-08-13] MEDS: Dexmedetomidine 400 mCg/100 mL 400 MCG in IV Premix 1 EACH IV SCH (02:20)
[2016-08-13] MEDS: Vasopressin Inj 20 UNIT in 0.9% Sodium Chloride 100 ML IV SCH (02:30)
--- NOTE | 2016-08-13 02:32 | ABG ---
DateTimeAnalyzed 02:26:00 -_ pH ____7.157 - 7.350 7.450 pCO2 ___31.2__ -mmHg 35.0 45.0 pO2 148 -mmHg 69.0 116 HCO3- ___10.6__ -mmol/L 22.0 26.0 ABE __-16.6__ -mmol/L -2.0 2.0 tHb ____8.1__ -g/dL O2Hb ___95.8__ -% COHb ____0.7__ -% MetHb ____1.7__ -% sO2 ___98.2__ -% FIO2 __100.0__ -% PEEP ____2.0__ -cmH2O Set_RR ___20.0__ -b/min Vt __450.0__ -L Drawn By MK - Date/Time Notified____ 02:32:00 -_ Oxygen Device 1 VENTILATOR - Notified By MK - Age 74 -years B 767 -mmHg tO2 ___11.3__ -Vol% OrderingPhysicianInitials mf - Abdelrahman test N/A -
[2016-08-13] MEDS: 0.9% Sodium Chloride 1,000 ML IV SCH (02:45)
--- NOTE | 2016-08-13 02:47 | ABG ---
DateTimeAnalyzed 02:26:00 -_ pH ____7.157 - 7.350 7.450 pCO2 ___31.2__ -mmHg 35.0 45.0 pO2 148 -mmHg 69.0 116 HCO3- ___10.6__ -mmol/L 22.0 26.0 ABE __-16.6__ -mmol/L -2.0 2.0 tHb ____8.1__ -g/dL O2Hb ___95.8__ -% COHb ____0.7__ -% MetHb ____1.7__ -% sO2 ___98.2__ -% FIO2 __100.0__ -% PEEP ____2.0__ -cmH2O Set_RR ___20.0__ -b/min Vt __450.0__ -L Drawn By MK - Date/Time Notified____ 02:32:00 -_ Oxygen Device 1 VENTILATOR - Notified By MK - Notified Whom ___Dr.Fuimaono - Age 74 -years B 767 -mmHg tO2 ___11.3__ -Vol% OrderingPhysicianInitials mf - Abdelrahman test N/A -
[2016-08-13 03:30] VITALS: BP 68/44; PULSE 60; RESP 26; O2SAT 80
[2016-08-13] MEDS ORDERED: EPHEDrine Sulfate 50 mg/mL Inj ONE (04:09)
[2016-08-13] MEDS ORDERED: Sodium Bicarb 1 mEq/mL 50 mL Inj ONE (04:09)
[2016-08-13] MEDS ORDERED: 0.9% Sodium Chloride 10 mL Inj ONE (04:09)
[2016-08-13] MEDS ORDERED: Piperacillin-Tazo 3.375 Gm Inj 3.375 GM in Dextrose 5% Minibag Plus 50 ML IV SCH (04:30)
--- NOTE | 2016-08-13 04:34 | PCM.PNMED ---
Subjective Date of Service Aug 13, 2016 Subjective CODE BLUE called around 3:52 am. CPR initiated with rounds of epi given. Rhythm was PEA. Patient had 19 minutes of CPR with no return of spontaneous circulation and was pronounced around 4:10 am. No family was present as attempt to locate son was unsuccessful for several hours. Rodger Decker MD Aug 13, 2016 04:34
[2016-08-13] MEDS ORDERED: Doxycycline Inj 100 MG in Dextrose 5% Minibag Plus 100 ML IV SCH (06:00)
--- NOTE | 2016-08-13 07:14 | CONS ---
[address] [address] CONSULTATION REPORT PATIENT: JENNY MALDONADO : 1935 MR#: [id number] ADMIT: 08/12/2016 JOB ID: [id number] DATE OF SERVICE: 08/12/2016 PULMONARY CRITICAL CARE CONSULTATION NOTE: Ms. Maldonado is a 81-year-old woman seen in consultation at the request of Dr. Vasquez for septic shock and acute respiratory failure requiring mechanical ventilation. The patient was seen and evaluated with resident physician Maame Madrid DO (RES). Please refer to her separate detailed note for additional information. The following is an addendum. HISTORY OF PRESENT ILLNESS: The patient is already intubated by the time I met her so all of the history is obtained per review of emergency department records and electronic medical records. She is a 81-year-old woman with morbid obesity, diabetes, and history of coronary artery disease with pacer defibrillator who presented to the emergency department with nausea, vomiting, hypotension. In addition, she was reportedly complaining of shortness of breath and abdominal pain. There is some question of blood in her vomit as well per ER notes. She quickly decompensated from a respiratory standpoint, becoming hypoxic. An arterial blood gas also showed on compensated mixed respiratory and metabolic acidosis and the patient was intubated. A central line was placed. She was also hypotensive in the 70s initially and received a total of 5 L fluid bolus by the time I met her. She was already on norepinephrine at 0.15 mcg. She reportedly had short runs of ventricular tachycardia during intubation but did not require any medications for this. She also received a dose of Zosyn in the emergency department. Past medical history, social history, family history, and review of systems all are per Dr. Batres's note. PAST MEDICAL HISTORY: Includes: 1. Coronary artery disease. 2. Defibrillator placed 2012. 3. Obstructive sleep apnea. 4. History of PE. 5. Type 2 diabetes. PHYSICAL EXAMINATION: Vital signs reviewed. Temperature 36.2, pulse 86, respirations 15, BP 98/37, sats 94% on 50% FiO2. General: Intubated, sedated. Currently unresponsive. Pupils unequal. Chest: Clear to auscultation. Neck: No cervical lymphadenopathy. Heart: Regular rate, rhythm. No murmurs. Abdomen: Nontender, large. Extremities: No cyanosis, clubbing, edema. Skin: No rashes. LABORATORIES: Reviewed. WBC normal. Hemoglobin down to 8.5 from 10.1 this morning. Platelets 133. Chemistry notable for creatinine up from 2.45 to 2.68, bicarb of 15, potassium 4.7. Lactate is 2.8, which is stable compared to earlier today. Calcium 6.8. Liver enzymes are normal. Other labs including procalcitonin and cortisol are pending. Urine tox screen is positive for amphetamines. Urine Legionella antigen is negative. Culture data are pending. IMAGING: Chest x-ray shows bilateral infiltrates. Central line and ET tube in appropriate position. Arterial blood gas prior to intubation shows pH 7.13, pCO2 of 53, bicarb of 17.5, and pO2 of 73. Post intubation blood gas shows pH 7.22, pCO2 of 40, pO2 of 68, bicarb of 16.1. ASSESSMENT: 1. Septic shock. 2. Acute hypoxic respiratory failure. 3. Acute kidney injury. 4. Suspected community-acquired pneumonia versus influenza pneumonia. 5. Morbid obesity. 6. Type 2 diabetes. 7. Hypovolemia. RECOMMENDATIONS: This 81-year-old woman presented with multiple complaints of a GI and pulmonary nature including shortness of breath, what sounds like nausea, vomiting, diarrhea, and hematemesis. She was in shock and in respiratory failure requiring intubation very quickly after arrival. She is currently on the vent with blood gas showing mixed respiratory and metabolic acidosis. I believe the metabolic acidosis is secondary to renal failure primarily, and perhaps a component of diarrhea as well. Lactic acidosis seems to be mild at this point. She is not really compensating adequately, so we may have to increase the respiratory rate further on the ventilator. From an antibiotic standpoint, she got a dose of Zosyn in the emergency department. We will give him doxycycline as well to cover atypical organisms. I am going to avoid azithromycin and levofloxacin because she had brief runs of ventricular tachycardia in the emergency department. Will check a QT interval as well. I think she got one dose of vancomycin in the ER and I do not think we need to continue this unless she came from a nursing facility. From a renal standpoint, her creatinine seems to be rising. This is most likely ATN. I would like to switch her from normal saline to bicarb-containing fluids in view of both her renal dysfunction and worsening acidosis. She is on appropriate DVT prophylaxis. We need to follow his hemoglobin to make sure this is not dropping. I switched her to a PPI b.i.d. instead of famotidine. CRITICAL CARE TIME: 60 minutes.
[2016-08-13] MEDS ORDERED: Pantoprazole 4 mg/mL 10 mL Inj IVPUSH SCH ×2 (07:30→08:30)
--- NOTE | 2016-08-13 08:23 | NUR ---
P) Respiratory/Cardiac Pt. initially hypotensive and cardiac rhythm was V-paced with an IVCD and p waves were present. she continued to require more and more pressors and volume to maintain a MAP over 60, stopped making urine, SPO2 began dropping in spite of aggressive attempts to assist pt.'s oxygenation with changes in ventilator settings. Eventually she was on max doses of norepinephrine, vasopressin, phenylephrine, epinephrine, amiodarone after she went into V-tach, bicarb for metabolic acidosis, we had replaced her calcium and magnesium as well as giving anti virals and antibiotics. Please see flow sheet for drips. Hanh was in V-tach for approximately 30 minuted and then dropped to a slow ventricular rhythm in the 60's, her pulses became non-palpable and she was in PEA, code was called, see code sheets for details please. Hanh at 0410 this am, multiple attempts were made to contact her son and some messages were left, the last asking that he contact the nursing supervisor real estate office.
--- NOTE | 2016-08-13 14:04 | PCM.DC.MED ---
Discharge Summary Date of Service Aug 13, 2016 Dates of Hospitalization Date of Hospital Admission Aug 12, 2016 at 16:43 Date of Discharge: Aug 13, 2016 Providers: Admitting Physician: Gabriel Vasquez MD Primary Care Physician: Sheila Rabago Attending Physician: Gabriel Vasquez MD Diagnosis at Time of Discharge Diagnosis at Time of Discharge 1 expiration 2. Severe sepsis 3. Acute hypoxic respiratory failure, requiring intubation and mechanical ventilation 4. Community Acquired pneumonia. 5. Acute kidney injury 6. Chronic diastolic heart failure Consultations Dr. Dunn, pulmonary critical care Procedures XRay, CTs & MRIs CT head personally/concurrently reviewed by Christina 08/12 1. No acute intracranial abnormality. 2. Right maxillary sinus disease. CXR no acute cardiopulmonary disease, pacemaker noted personally/concurrently reviewed by Christina 08/12 Subsequent chest x-ray reveals endotracheal tube in good position, a right IJ in place. Right basilar infiltrate. ECG 12 Lead 08/12 personally/concurrently reviewed by Christina 08/12 . Ventricular-paced rhythm rate 89 . When compared with ECG of 19-Apr-2016 18:13:42, . No significant change Cardiac Echo Impression Echo 07/26/14 The left ventricle is borderline dilated. Left ventricular systolic function is normal. The ejection fraction is estimated to be 60-65%. There are no obvious focal wall motion abnormalities noted but poor endocardial definition reduces the sensitivity for the detection of such. The right ventricle is normal in size and function. There is a pacemaker lead in the right ventricle. The right ventricular systolic pressure is estimated at 30 mmHg assuming a right atrial pressure of 3 mm Hg. RVSP has decreased since prior study. The left atrium is moderately dilated. Right atrial size is normal. There is no significant valvular heart disease. The aortic root is normal size. No other significant changes since 09/08/2013. Invasive Procedures Intubation and mechanical ventilation. Radial artery insertion Central venous catheter insertion Brief History Ms. Maldonado is a 81 year old woman with reported history of CAD s/p [place] with dual chamber defibrillator placement, DM, PE, and HTN that presented to [facility] with a one day history of vomiting and diarrhea associated with evidence of blood, transient chest pain, SOB, generalized weakness, and abdominal pain. She was admitted for evaluation and treatment of septic shock secondary to suspected PNA , SHEBA, and/or possible intra-abdominal process. Pulmonary/critical care was consulted for mechanical ventilation and supportive management of pressors, antibiotics, and work up. Patient was intubated and sedated at time of examination. No ROS could be obtained. Last device check for defibrillator was 07/25/2016, no abnormalities noted. Echo history 07/2014 with LV dilation, EF60-65, no wall motion abnormalities, and RV normal in size and function. On admission, Cr 2.45, LA 2.8. Baseline creatinine based on previous admissions approx 1-1.42. Of note, UTox at admission revealed positive screen for amphetamines. Unknown at time of admission if OTC cough remedies were taken. In the ED, afebrile with T36.2 P86, BP98/37; she received 5L, Zosyn x1, norepinephrine was initiated. Reported to have multiple runs of VTach. She was promptly intubated secondary to acute hypoxemic respiratory failure observed in the ED. Her blood pressures soon began to drop despite fluid resuscitation and norepi, and vasopressin was added. Doxycycline, peramivir added to regiment. Left arterial line placed prior to transfer to CCU. Patient was transferred to CCU in stable condition, managed with pressor agents and mechanical ventilation. Hospital Course 81-year-old female acutely ill and admitted 08/12 hypotensive and in acute renal failure complaining of emesis and abdominal pain and then deteriorating in the emergency room becoming hypotensive and did not respond to 4 L of fluid and respiratory failure and was intubated. She comes to the floor on vasopressin and norepinephrine getting IV fluids and on a ventilator. Sepsis?- Source unclear at this point in time but most likely abdominal. Covering abdominal infection with Zosyn, lung zosyn/doxy (less likely). CT chest/abdomen/pelvis ordered cannot do contrast because of acute kidney injury. Trend lactate Acute respiratory failure- patient intubated etiology not entirely clear awaiting imaging thought at this point in time his volume overload/diastolic CHF as patient got 4 L and has sleep apnea and obesity hypoventilation syndrome Abdominal pain/nausea/vomiting/hematemesis/hematochezia-episode concerning for catastrophic abdominal event patient does have this history of bowel obstruction, we are having a problem getting the CT on her because she is not stable so I am getting flat plates. We will also trend H&H every 6 hours and transfuse as needed. Metabolic acidosis- repeat lactate pending, trend, antibiotics and fluid resuscitation Diastolic CHF?- Checking BNP at this point in time after volume resuscitation the contributing factor to respiratory failure Hypotension- likely secondary to sepsis, checking random cortisol level, volume resuscitating and utilizing pressors at this time. SHEBA-baseline cr 0.8 810/03/28, 2.45 08/12, follow and volume resuscitated at this time. IDDM- Lantus as ordered on parameters, prandial insulin, sliding scale insulin will follow an HG A1c is pending Transaminitis-acute, new since April, AST/ALT 82/48 08/12 HX HTN/LIPID/cad- home meds on parameters track Trop/EKG patient at risk for cardiac event under stress Hx GERD/GIBleed- follow H&H and transfuse as needed ROBBIE- non compliant likely contributed to respiratory failure Prophylaxis- DVT patient should have SCDs and heparin, GI pantoprazole Disposition-from home full code Not entirely clear what happening with this patient she initially presented as a viral gastroenteritis it would appear and then deteriorated in the emergency room. She has a history of bowel obstructions and risk factors for vascular events greater than 90 minutes spent ICU level care for life-threatening event that may sedate this patient's demise. Hospital course: This patient was admitted for nausea, and diarrhea. She is found to have evidence of sepsis requiring fluid resuscitation as well as valve as well as a right base infiltrate on her chest x-ray. Did not deteriorated and required intubation for acute hypoxic respiratory failure. The patient deteriorated in the early childhood education coordinator hours of August 14. She became more septic with worsening hypotension requiring escalation and vasopressors up to 3. Patient V she then had a cardiac arrest. Resuscitative measures were attempted for approximately 20 minutes without improvement. She was pronounced at that time. Exam Vital Signs (Last) Date Time Temp Pulse Resp B/P Pulse Ox O2 Delivery O2 Flow Rate FiO2 08/13/16 03:30 37.6 60 26 68/44 80 Mechanical Ventilator 100 08/12/16 15:01 3 Test 08/12/16 09:55 08/12/16 12:35 08/12/16 18:20 08/13/16 00:20 Hemoglobin A1c 7.8% (4.8-5.6) Procalcitonin 2.23ng/mL (See Comment) Urine Color Yellow (YELLOW) Urine Appearance Hazy (CLEAR,HAZY) Urine pH 5.0 (5.0-8.0) Urine Specific [place] 1.025 (1.003-1.035) Urine Protein Negativemg/dL (NEG,TRACE) Urine Glucose (UA) Negativemg/dL (NEGATIVE) Urine Ketones Tracemg/dL (NEGATIVE) Urine Occult Blood Negative (NEGATIVE) Urine Nitrite Negative (NEGATIVE) Urine Bilirubin Small (NEGATIVE) Urine Ictotest Negative (Negative) Urine Urobilinogen Normalmg/dL (NORMAL) Urine Leukocyte Esterase Trace (NEGATIVE) Urine RBC 0-2/hpf (0-2) Urine WBC 0-5/hpf (0-5) Urine Epithelial Cells Occasional/hpf (NONE-MOD) Urine Crystals Amorphous urates (NONE Urine Bacteria Few/hpf (NONE-FEW) Urine Hyaline Casts None/lpf (NONE) Urine Granular Casts None seen (NONE SEEN) Urine Waxy Casts None seen (NONE SEEN) Urine Red Blood Cell Casts None seen (NONE SEEN) Urine White Blood Cell Casts None seen (NONE SEEN) Urine Mucus None seen (None Seen) Urine Trichomonas None seen (NONE SEEN) Urine Yeast None (NONE SEEN) Urinalysis Comment None Urine Culture Reflexed Indicated Urine Opiates Screen Negative Urine Methadone Screen Negative Urine Barbiturates Screen Negative Urine Amphetamines Screen Positive Urine Benzodiazepines Screen Negative Urine Cocaine Metabolite Screen Negative Urine Cannabinoids Screen Negative Urine Legionella pneumophilia Ag Negative (Negative) White Blood Count 3.8th/mm3 (3.8-10.1) Red Blood Count 3.39mil/mm3 (3.90-5.20) Mean Corpuscular Volume 84.1fL (81-100) Mean Corpuscular Hemoglobin 25.1pg (27.0-35.0) Mean Corpuscular Hemoglobin Concent 29.8% (32.0-37.0) Red Cell Distribution Width 15.8% (12.3-15.4) Platelet Count 133bil/L (150-400) Neutrophils (%) (Auto) 86.4% (40-74) Lymphocytes (%) (Auto) 9.3% (14-46) Monocytes (%) (Auto) 1.9% (4-12) Eosinophils (%) (Auto) 2.1% (0-5) Basophils (%) (Auto) 0% (0-3) Phosphorus Level 4.0mg/dL (2.5-4.9) Total Bilirubin 1.1mg/dL (0.0-1.2) Aspartate Amino Transf (AST/SGOT) 47U/L (0-50) Alanine Aminotransferase (ALT/SGPT) 30U/L (0-32) Alkaline Phosphatase 84U/L (25-165) Troponin T < 0.010ug/L (0.0-0.011) Pro-B-Type Natriuretic Peptide 788.3pg/mL (0-738) Total Protein 5.0g/dL (6.4-8.4) Albumin 2.5g/dL (3.4-5.0) Thyroid Stimulating Hormone (TSH) 2.770uIU/mL (0.450-4.500) Free Thyroxine 1.14ng/dL (0.82-1.77) Cortisol 17.2ug/dL (.) Lactic Acid Level 4.4mmol/L (0.4-2.0) Test 08/13/16 01:41 Hemoglobin 8.4g/dL (12.0-15.6) Hematocrit 28.5% (35.0-46.0) Sodium Level 139mEq/L (134-144) Potassium Level 4.4mEq/L (3.5-5.2) Chloride Level 107mEq/L (97-108) Carbon Dioxide Level 12mmol/L (18-29) Blood Urea Nitrogen 57mg/dL (8-27) Creatinine 3.40mg/dL (0.57-1.00) Estimat Glomerular Filtration Rate 19mL/min (>59) Glucose Level 281mg/dL (60-99) Calcium Level 7.1mg/dL (8.5-10.1) Magnesium Level 1.9mg/dL (1.6-2.6) Discharge Medications Discharge Medications Allopurinol (Allopurinol) 300 Mg Tablet 300 MG PO DAILY (Reported) Amlodipine (Amlodipine) 10 Mg Tablet 10 MG PO DAILY (Reported) Carvedilol (Carvedilol) 25 Mg Tablet 25 MG PO BID (Reported) Cephalexin (Cephalexin) 250 Mg Capsule 250 MG PO TID Prescribed by: AKSHAT ELIZABETH MD Fenofibrate (Lofibra) 160 Mg Tablet 160 MG PO DAILY (Reported) Folic Acid (Folic Acid) 1 Mg Tablet 1 MG PO DAILY (Reported) Furosemide (Lasix) 20 Mg Tablet 20 MG PO DAILY (Reported) Gabapentin (Gabapentin) 300 Mg Capsule 600 MG PO QAM (Reported) Gabapentin (Gabapentin) 300 Mg Capsule 600 MG PO HS (Reported) Gabapentin (Neurontin) 300 Mg Capsule 600 MG PO BID (Reported) Gabapentin (Neurontin) 100 Mg Capsule 200 MG PO noon (Reported) Insulin Aspart (NovoLOG U100 Insulin Vial) 100 U/Ml U 10 UNIT [id number] TIDAC ( Reported) Insulin Glargine (Lantus U100 Insulin Vial) 100 Unit/Ml Vial 40 UNIT SUBQ BID ( Reported) INSULIN PROTOCAL Methadone (Methadone) 5 Mg Tablet 5 MG PO Q 8 HR (Reported) Methotrexate Sodium (Trexall) 5 Mg Tablet 25 MG PO EVERY THURSDAY (Reported) Pramipexole Dihydrochloride (Mirapex) 1 Mg Tablet 2 MG PO HS (Reported) Simvastatin (Simvastatin) 20 Mg Tablet 20 MG PO HS (Reported) Venlafaxine (Venlafaxine) 37.5 Mg Tablet 37.5 MG PO TID (Reported) As needed Cyclobenzaprine (Cyclobenzaprine) 5 Mg Tablet 5 MG PO HS PRN PRN Spasm (Reported ) Loratadine (Claritin) 10 Mg Capsule 10 MG PO DAILY PRN PRN ALLERGIES (Reported) Metoclopramide (Reglan) 10 Mg Tablet 10 MG PO HS PRN PRN For Nausea (Reported) Ondansetron ODT (Zofran ODT) 4 Mg Tablet 4 MG PO Q4H PRN PRN For Nausea Prescribed by: TRAVIS RODRIGUEZ MD oxyCODONE (oxyCODONE) 10 Mg Tablet 10 MG PO QID PRN PRN For Pain (Reported) oxyCODONE-Acetaminophen 10-325 mg (oxyCODONE-Acetaminophen 10-325 mg) 1 Each Tablet 1 TAB PO Q4H PRN PRN For Pain Prescribed by: AKSHAT ELIZABETH MD Time spent 60 minute Abdelrahman Altamirano MD Aug 13, 2016 14:04
== END 2016-08-13 04:10 | disposition expired | DRG 871 ==
LOC: SED 09:21 → EDBD 09:21 → PCC 16:43 → OBSVTOIN 16:43 → CCU 17:11
PROVIDERS: ADMIT Hospitalist; ATTEND Hospitalist
PROC: 02HV33Z Insertion of Infusion Device into Superior Vena Cava, Percutaneous Approach (ICD-10-PCS; principal; 2016-08-12)
PROC: 03HB33Z Insertion of Infusion Device into Right Radial Artery, Percutaneous Approach (ICD-10-PCS; 2016-08-12)
PROC: 5A1935Z Respiratory Ventilation, Less than 24 Consecutive Hours (ICD-10-PCS; 2016-08-12)
PROC: 0BH17EZ Insertion of Endotracheal Airway into Trachea, Via Natural or Artificial Opening (ICD-10-PCS; 2016-08-12)
PROC: 4A033R1 Measurement of Arterial Saturation, Peripheral, Percutaneous Approach (ICD-10-PCS; 2016-08-12)
PROC: 5A12012 Performance of Cardiac Output, Single, Manual (ICD-10-PCS; 2016-08-13)
DX: A41.9 Sepsis, unspecified organism (principal); R65.21 Severe sepsis with septic shock; J96.01 Acute respiratory failure with hypoxia; J18.9 Pneumonia, unspecified organism; N17.9 Acute kidney failure, unspecified; E87.2 Acidosis; I50.32 Chronic diastolic (congestive) heart failure; I47.2 Ventricular tachycardia; Z68.42 Body mass index [BMI] 45.0-49.9, adult; I46.9 Cardiac arrest, cause unspecified; I25.10 Atherosclerotic heart disease of native coronary artery without angina pectoris; M19.91 Primary osteoarthritis, unspecified site; E11.9 Type 2 diabetes mellitus without complications; E78.5 Hyperlipidemia, unspecified; E66.01 Morbid (severe) obesity due to excess calories; G47.33 Obstructive sleep apnea (adult) (pediatric); Z91.19 Patient's noncompliance with other medical treatment and regimen; Z87.440 Personal history of urinary (tract) infections; Z95.0 Presence of cardiac pacemaker; I25.2 Old myocardial infarction; Z79.4 Long term (current) use of insulin